=== PATIENT | female | born 1990 | race Caucasian/White ===

== ENCOUNTER → 2021-07-12 15:23 | Outpatient (CLI) | payer OTHER, SELFPAY ==
--- NOTE | ~2021-07-12 | US_ITS ---
EXAMINATION: US OB /maternal detail DATE: 07/12/2021 16:22 INDICATION: Second trimester anatomic survey TECHNIQUE: Real-time ultrasound of the pelvis was performed. COMPARISON: None. FINDINGS: There is a single living fetus in vertex presentation. The placenta is anterior and 4.3 cm from the i nternal cervical os. heart rate is 128 beats per minute (bpm). cardiac activity and feta l movement are noted. The amniotic fluid index is subjectively normal. The ventricular outflow tracts of the heart are not well demonstrated. The following anatomy wa s identified as normal: 4 chamber heart 3 vessel cord cord insertion kidneys urinary bladder stomach spine diaphragm ventricles cisterna magna cerebellum The following biometric data were obtained: Biparietal diameter (BPD): 4.8 cm; head circumference (HC): 18.0 cm; abdominal circumference (AC): 14 .8 cm; femur length (FL): 3.4 cm. These measurements are concordant. Estimated weight is 356 g +/- 53 g, which correlates with the 32nd percentile when 11/24/2021 is used as estimated date of delivery. As single measurements, these parameters are each equal to the following estimated gestational ages w ith ranges of +/- 2 standard deviations: BPD: 20 weeks 5 days ( 19 weeks 0 days - 22 weeks 3 days). HC: 20 weeks 3 days ( 19 weeks 0 days - 21 weeks 6 days). AC: 20 weeks 1 days ( 18 weeks 0 days - 22 weeks 1 days). FL: 20 weeks 6 days ( 19 weeks 0 days - 22 weeks 5 days). estimated gestational age based solely on measurements from this exam is 20 weeks 4 days +/- 1 weeks 3 days. IMPRESSION: 1. Single living fetus in vertex presentation. 2. Estimated weight is 356 g +/- 53 g, which correlates with the 32nd percentile when 11/24/2021 is used as estimated date of delivery. 3. Ventricular outflow tracts of the heart not well demonstrated. Reviewed, dictated and finalized at location [facility] IMPRESSION: 1. Single living fetus in vertex presentation. 2. Estimated weight is 356 g +/- 53 g, which correlates with the 32nd per centile when 11/24/2021 is used as estimated date of delivery. 3. Ventricular outflow tracts of the heart not well demonstrated.
== END ==
PROVIDERS: Visit Provider Nurse Practitioner Obstetrics & Gynecology
DX: Z34.92 Encounter for supervision of normal pregnancy, unspecified, second trimester (principal); Z3A.20 20 weeks gestation of pregnancy
CPT/HCPCS: 76805

== ENCOUNTER 2021-11-14 21:07 | Inpatient (IN) | payer OTHER, SELFPAY ==
[2021-11-14] MEDS: LACTATED RINGERS 1,000 ML 125 ML IV CONT (23:15)
[2021-11-14] MEDS: fentaNYL CITRATE INJ (*CRX) 100 MCG/2 ML VIAL IV PUSH (23:18)
[2021-11-14 23:27] LABS: Basophils Percent Auto 0.1 % (0.2-1.2); Hematocrit 39.1 % (37.0-47.0); Hemoglobin 13.8 g/dL (12.0-15.0); Immature Granulocyte Absolute 0.06 K/mm3 (0.00-0.031); Immature Granulocyte Percent A 0.4 % (0-0.5); Lymphocytes Absolute Auto 1.23 K/mm3 (0.9-3.2); Lymphocytes Percent Auto 8.6 % (18.3-44.2); Mean Corpuscular HGB Conc 35.3 g/dl (32-36); Mean Corpuscular Hemoglobin 30.7 pg (26-34); Mean Corpuscular Volume 87.1 fl (80-100); Mean Platelet Volume 12.2 fl (7.4-10.4); Monocytes Absolute Auto 0.6 K/mm3 (0.1-0.6); Monocytes Percent Auto 4.5 % (2.6-8.5); Neutrophils Absolute Auto 12.3 K/mm3 (1.3-6.7); Neutrophils Percent Auto 86.4 % (45.5-73.1); Platelet Count Result 197 k/mm3 (150-375); Red Blood Count 4.49 M/mm3 (4.2-5.4); Red Cell Distribution Width 12.6 % (11.5-14.5); White Blood Count 14.3 K/mm3 (4.5-10.0)
--- NOTE | 2021-11-14 23:51 | P.PNAN_ITS ---
Anes - Eval Pre Procedure Procedure: LAbor epidural Date/Time: 11/14/21 23:51 Surgeon: Yogesh Preop Diagnosis: abd pain with contractions Pre Op Diagnosis: Contractions Patient Data Age: 30 Gender: F Height: Weight: Allergies Allergy/AdvReac Type Severity Reaction Status Date / Time No Known Allergies Allergy Verified 10/27/21 12:31 Home Medications Medication Instructions Recorded Confirmed Type PNV cmb#95-ferrous fumarate-FA 1 tablet PO DAILY 10/27/21 10/27/21 History [] sertraline 200 mg PO DAILY 10/27/21 10/27/21 History Laboratory Tests 11/14/21 11/14/21 23:20 23:20 WBC 14.3 K/mm3 H K/mm3 (4.5-10.0) RBC 4.49 M/mm3 M/mm3 (4.2-5.4) Hgb 13.8 g/dL g/dL (12.0-15.0) Hct 39.1 % % (37.0-47.0) MCV 87.1 fl fl (80-100) MCH 30.7 pg pg (26-34) MCHC 35.3 g/dl g/dl (32-36) RDW 12.6 % % (11.5-14.5) Plt Count 197 k/mm3 k/mm3 (150-375) MPV 12.2 fl H fl (7.4-10.4) Immature Gran % (Auto) 0.4 % % (0-0.5) Neut % (Auto) 86.4 % H % (45.5-73.1) Lymph % (Auto) 8.6 % L % (18.3-44.2) Terry % (Auto) 4.5 % % (2.6-8.5) Eos % (Auto) 0.0 % % (0-4.4) Baso % (Auto) 0.1 % L % (0.2-1.2) Lymph # (Auto) 1.23 K/mm3 K/mm3 (0.9-3.2) Terry # (Auto) 0.6 K/mm3 K/mm3 (0.1-0.6) Eos # (Auto) 0.0 K/mm3 K/mm3 (0-0.3) Baso # (Auto) 0.0 K/mm3 K/mm3 (0.0-0.1) Abs Immat Gran (auto) 0.06 K/mm3 H K/mm3 (0.00-0.031) Absolute Neuts (auto) 12.3 K/mm3 H K/mm3 (1.3-6.7) Absolute Nucleated RBC 0.0 K/mm3 K/mm3 (0.0-0.012) Nucleated RBC % 0.0 % % (0.0-0.2) RPR Pending Patient hx anesthesia problems: none Family hx anesthesia problems: none Results Review: All pre-operative results and documents have been reviewed as part of the pre-operative evaluation. [facility] Past Medical History Medical History Obesity and not yet delivered Family History Family History Father Ocular melanoma Depression Social History Social History Substance use: never Spiritual care concerns: No Exam Day of Procedure 11/14/21 23:51 Patient weight: obese Heart: regular rate and rhythm Lungs: clear to auscultation Airway: Mallampati scale Neurological: alert and oriented
[2021-11-14 23:56] VITALS: PULSE 85; O2SAT 100
[2021-11-14 23:58] VITALS: BP 133/79; PULSE 77
[2021-11-14 23:59] VITALS: BP 124/70; PULSE 89
[2021-11-15] VITALS (68 sets, daily range): BP systolic 84–153; BP diastolic 16–115; PULSE 25–162; RESP 18; TEMP 36.1–37.5; O2SAT 77–100; BMI 36.7
[2021-11-15] MEDS: LACTATED RINGERS 1,000 ML 125 ML IV CONT ×2 (00:15→01:26)
--- NOTE | 2021-11-15 00:17 | LDADM ---
This patient, Rachael Braun, was admitted to Labor/Delivery/Recovery 107 on 11/14/21 at 21:07. Plans for labor, pain management and were discussed with patient. Patient/family oriented to hospital policies and general routines including ID bracelet, bed and alarms, visiting hours, pain management, procedures, bathroom and other care routines, personal items, smoking policy, room service/diet and guest tray routines, infant security routines, and visiting hours. Patient/Family are encouraged to report perceived risks to care and to ask questions if they do not understand what they are told or what they should do. See [facility] for further documentation.
[2021-11-15] MEDS: OXYTOCIN 30 UNITS/NS 500 ML 30 UNITS/500 ML BAG 125 UNITS IV CONT ×2 (02:12→02:47)
--- NOTE | 2021-11-15 02:20 | PM.OBPRVD ---
OB - Delivery Note Procedure Delivery date: 11/15/21 Procedure: Delivery monitor: External FHT and External Uterine Route of delivery: Laceration Description: Perineal - 1st Degree Delivery repair: vicryl Specimen: No Quantitative Blood Loss (ml): 75 Anesthesia type: Epidural Disposition: Floor Narrative: With adequate expulsive efforts by the mother, the baby's head was delivered OA. The baby's anterior shoulder was delivered under the pubic symphysis without difficulty. The posterior shoulder and the rest of the baby delivered without difficulty. The infant was placed on the mothers chest and suctioned and stimulated. The cord was clamped and cut after 30 seconds. Mother and baby both stable. [place] Baby Date of : 11/15/21 Time of : 02:06 Weeks of gestation at delivery: 38 gender: Male Weight (pounds): 6 Weight (ounces): 3 presentation: vertex Placenta delivery description: Spontaneous Cord Vessel Description: 3 Vessels and Nuchal Cord score one minute: 8 score five minutes: 9
[2021-11-15] MEDS: WITCH HAZEL 40 PADS 1 PAD TOPICAL (04:41)
[2021-11-15] MEDS: BENZOCAINE 20% AER SPR (*SP) 56 GM CAN 1 SPRAY TOPICAL (04:41)
[2021-11-15] MEDS: SERTRALINE HCL 50 MG TABLET 200 MG PO (09:39)
[2021-11-15] MEDS: MULTIVIT/MIN/PREN/FOL AC/IRON TABLET 1 TAB PO (09:39)
[2021-11-15 11:53] LABS: Rapid Plasma Reagin Non-Reactive (NonReactive)
--- NOTE | 2021-11-15 12:38 | PC.NURSE ---
[id number] Introductions were made, then consulted with patient to assess needs related to . Mother led the conversation with her experience feeding her so far. Mother works well with her with encouragement and education. Encouraged understanding of the benefits of skin to skin (unwrapping and placing vertically on her chest), responsive feeding and how to watch for early feeding signs, frequency of feeding on demand about every 8-12 times in 24 hours (every 2-3 hours), milk production, duration of feeding, signs of adequate intake/output and how to record on the feeding sheet. Reviewed positioning and ear, shoulder, hip alignment, supporting the breast, asymmetrical latch (off-center), and leading with the chin with a big open side gape. Infant latched optimally to the right breast in football position. Encouraged good positioning and deep latch with reassurance. Education given to mother of how to visualize suck/swallow ratios and drinking at the breast. was able to maintain latch without discomfort to mother. Nipple care reviewed with optimal latch and good positioning. Reviewed good handwashing when or touching the breast/nipples to prevent infection. Resources used to facilitate learning were used with the mom and baby guide. Mother voiced understanding of responsive feedings, stimulating with skin to skin, hand expressed colostrum, touch, talking to infant to encourage if it has been 2 -3 hours since the start of the last , to call if does not latch or there is discomfort with . Reported to the primary RN.
[2021-11-15] MEDS: IBUPROFEN 600 MG TABLET PO (22:22)
[2021-11-16 04:31] LABS: Hemoglobin 9.9 g/dL (12.0-15.0)
[2021-11-16 07:25] VITALS: BP 119/79; PULSE 65; RESP 18; TEMP 36.9; O2SAT 100
--- NOTE | 2021-11-16 08:22 | P.PNOB_ITS ---
OB - PN: Subj Subjective Date/time seen: 11/16/21 08:22 Patient comments: no complaints, pain well controlled, incisional pain, tolerating diet and flatus present OB - PN: Obj Data Labs CBC & Chem 7: 11/16/21 02:45 Labs: Laboratory Results - last 24 hr 11/14/21 11/14/21 11/16/21 23:20 23:20 02:45 Hgb 9.9 L D Hct 30.0 L RPR Non-reactive Antigen Identification TNP OB - PN A/P Plan day: 1 Plan: routine care Comments: No problems, routine care Time Spent With Patient Time: Total time spent is greater than 50% in coordination of care (as doc umented) at patient's floor/unit and/or counseling patient: Exam Const: General: comfortable, no acute distress and alert Resp: Effort & Inspection: normal respiratory effort Auscultation: no crackles, no rales and no rhonchi Cardio: Rate: regular rate Heart sounds: no click, no murmurs and no rubs GI: Inspection: non-distended GI Palp: No Tenderness to palpation present (GI) Auscultation: normal bowel sounds Other: Incision - CDI Extrem: General: normal to inspection, no pedal edema and no calf tenderness
[2021-11-16] MEDS: DOCUSATE SODIUM 100 MG CAPSULE PO (09:03)
[2021-11-16] MEDS: MULTIVIT/MIN/PREN/FOL AC/IRON TABLET 1 TAB PO (09:03)
[2021-11-16] MEDS: POLYSACCHARIDE IRON COMPLEX 150 MG CAPSULE PO (09:03)
[2021-11-16] MEDS: WITCH HAZEL 40 PADS 1 PAD TOPICAL (09:03)
[2021-11-16] MEDS: IBUPROFEN 600 MG TABLET PO (09:04)
[2021-11-16] MEDS: SERTRALINE HCL 50 MG TABLET 200 MG PO (09:04)
--- NOTE | 2021-11-16 13:26 | PC.NURSE ---
1200 - Introductions were made, then consulted with patient to assess needs related to . Mother led the conversation with her experience feeding her infant so far. Mother works well with her with encouragement and education. Encouraged understanding of the benefits of skin to skin (unwrapping infant and placing vertically on her chest), responsive feeding and how to watch for early feeding signs, frequency of feeding on demand about every 8-12 times in 24 hours (every 2-3 hours), milk production, duration of feeding, signs of adequate intake/output and how to record on the feeding sheet. Mother latched in cross cradle to the left breast. Reviewed positioning and ear, shoulder, hip alignment, supporting the breast, asymmetrical latch (off-center), and leading with the chin with a big open side gape. Mother offered the right breast and he latched optimally in football position. Education given to mother of how to visualize suck/swallow ratios and drinking at the breast. was able to maintain latch without discomfort to mother. Nipple care reviewed with optimal latch and good positioning. Reviewed good handwashing when or touching the breast/nipples to prevent infection. Resources used to facilitate learning were used with the mom and baby guide. Mother voiced understanding of responsive feedings, stimulating with skin to skin, hand expressed colostrum, touch, talking to to encourage if it has been 2 -3 hours since the start of the last , to call if infant does not latch or there is discomfort with . Reported to the primary RN.
[2021-11-16 15:35] VITALS: BP 135/75; PULSE 75; RESP 16; TEMP 36.7; O2SAT 99
[2021-11-16 20:03] VITALS: BP 114/63; PULSE 77; RESP 18; TEMP 36.6; O2SAT 99
--- NOTE | 2021-11-17 07:18 | P.PNOB_ITS ---
OB - PN: Subj Subjective Date/time seen: 11/17/21 07:18 Patient comments: no complaints baby status: doing well [place] feeding status: exclusively breast feeding OB - PN: Obj Data Labs CBC & Chem 7: 11/16/21 02:45 OB - PN A/P Assessment and Plan (1) , delivered: Code(s): O80 - Encounter for full-term uncomplicated delivery Status: Acute Plan day: 2 Plan: routine care and discharge home Time Spent With Patient Time: Total time spent is greater than 50% in coordination of care (as documented) at patient's floor/unit and/or counseling patient: Time with patient: less than 15 minutes Exam Narrative: NAD abdomen soft, nontender, fundus firm below the umbilicus Extremities nontender, 1+ edema
--- NOTE | 2021-11-17 07:20 | PM.OBDSVD ---
DS: Admitting Diagnosis Discharge Date 11/17/21 Admitting Diagnosis labor at term DS: Discharge Diagnosis Discharge Diagnosis (1) , delivered: Code(s): O80 - Encounter for full-term uncomplicated delivery Status: Acute OB - DS: Summary OB Procedures : Ultrasound OB Procedures Intrapartum: Spontaneous Vag Delivery OB Procedures: : None Peripartum Data Delivery Method: Natural Vaginal complications: none Status at Discharge Functional status at discharge: independent ambulation Time Spent with Patient Time attestation: Total time spent providing and/or coordinating discharge services: Exam Narrative: NAD abdomen soft, appropriately tender Ext non tender, 1+ edema Discharge Plan Discharge Attending physician on discharge: Shabana Zuñiga Discharging Clinician: Shabana Zuñiga Patient Disposition: Home, Self-Care Activity: may shower and pelvic rest Diet: regular Patient Instructions: Antibiotic Form Stand Alone Forms: General Discharge Information Follow-up/Referrals: Shabana Zuñiga MD [Physician] - 4 Weeks Discharge Medications: Continued PNV cmb#95-ferrous fumarate-FA [] 28 mg iron- 800 mcg Tablet 1 tablet PO DAILY RF: 0 sertraline 200 mg Capsule 200 mg PO DAILY RF: 0 Date of admission: 11/14/21 21:07 Primary Care Provider: rEicaGeetha Admitting Provider: Shabana Zuñiga Attending physician on admission: Shabana Zuñiga Condition: Stable
[2021-11-17 07:35] VITALS: BP 132/66; PULSE 96; RESP 18; TEMP 36.3; O2SAT 98
[2021-11-17] MEDS: SERTRALINE HCL 50 MG TABLET 200 MG PO (08:19)
[2021-11-17] MEDS: IBUPROFEN 600 MG TABLET PO ×2 (08:20→08:25)
[2021-11-17] MEDS: DOCUSATE SODIUM 100 MG CAPSULE PO ×2 (08:20→08:24)
[2021-11-17] MEDS: MULTIVIT/MIN/PREN/FOL AC/IRON TABLET 1 TAB PO ×2 (08:20→08:24)
[2021-11-17] MEDS: POLYSACCHARIDE IRON COMPLEX 150 MG CAPSULE PO (08:20)
[2021-11-17] MEDS: SIMETHICONE 80 MG TAB.CHEW PO (08:23)
--- NOTE | 2021-11-17 12:50 | PC.NURSE ---
1200 - Mother led the conversation with her experience and plan to feed her so far and her ability to independently latch infant optimally without discomfort. Reminded parents to use good handwashing technique to prevent infection. Mother is feeding appropriately for growth of infant and understands stimulating to eat if needed. has had appropriate feedings in the last 24 hours meets the outcomes for weight, output and jaundice at this time. Mother states she is confident to continue effectively her infant at home or when to call for assistance and denies any additional assistance or education at this time. Reinforced understanding of milk production, transition of milk, signs of adequate intake, prevention/relief of engorgement, responsive after visualizing feeding cues, the different methods of stimulating to breastfeed 2-3 hours after the start of the last feeding, community resources, medication information reviewed per [facility] and when to call a provider using the resource of the mom and baby guide/[facility] website. Mother voiced understanding of the education shared. Reported to the primary RN.
== END 2021-11-17 12:15 | disposition home or self-care (01) | DRG 807 ==
LOC: ANHLDR 23:05 → ANHOB2 11-15 05:54
PROVIDERS: Admitting Provider Obstetrics & Gynecology; PCP Nurse Practitioner Family; Visit Provider Obstetrics & Gynecology
DX: O76 Abnormality in fetal heart rate and rhythm complicating labor and delivery (principal); Z37.0 Single live birth; O70.0 First degree perineal laceration during delivery; O69.81X0 Labor and delivery complicated by cord around neck, without compression, not applicable or unspecified; Z3A.38 38 weeks gestation of pregnancy
CPT/HCPCS: 36415; 85014; 85018; 85025; 86592; 86850; 86880; 86900; 86901; 86902; 86905; A9270; J2590; J2795; J3010; J7120